=== PATIENT | female | born 1940 | race African-American/Black ===

== ENCOUNTER → 2016-06-29 | Outpatient (CLI) | payer MEDICARE ==
[~2016-06-29] MED LIST: ADAL30TA5 PO; ASPI1TAB69 PO; KETO2SHA TOPICAL; LISI20TA PO; METF500 PO; METF850T PO; Prenatal Vitamins PO; ZOCO40TA PO
[2016-06-29 08:01] LABS: ALKALINE PHOSPHATASE 106 U/L (45-117); ALT (GPT) 26 U/L (10-53); ANION GAP 9 MEQ/L (5-15); AST (GOT) 19 U/L (15-37); BICARBONATE 28.8 MEQ/L (21.0-32.0); BLOOD UREA NITROGEN 15 MG/DL (7-18); CHLORIDE 99 MEQ/L (98-107); GLOMERULAR FILTRATION RATE 67 ML/MIN (>89); GLUCOSE,FASTING 284 MG/DL (74-99); HDL CHOLESTEROL 68.9 MG/DL (40.0-60.0); LDL CHOLESTEROL 108 MG/DL (0-99); POTASSIUM 3.7 MEQ/L (3.5-5.1); SODIUM (NA) 137 MEQ/L (136-145); TOTAL BILIRUBIN ADULT 0.5 MG/DL (0.2-1.0)
[2016-06-29 11:28] LABS: HEMOGLOBIN A1a 1.2 %; HEMOGLOBIN A1b 2.8 %; HEMOGLOBIN Ao 77.6 %; HEMOGLOBIN LA1C 3.1 %; HEMOGLOBIN P3 5.2 %
== END ==
LOC: CLAB 06:39
PROVIDERS: ATTEND Family Medicine
DX: E11.9 Type 2 diabetes mellitus without complications (principal); E78.5 Hyperlipidemia, unspecified
CPT/HCPCS: 36415; 80053; 80061; 83036

== ENCOUNTER → 2017-01-31 | Outpatient (CLI) | payer MEDICARE ==
[~2017-01-31] MED LIST changes: -METF500 PO
[2017-01-31 13:35] LABS: HEMOGLOBIN A1a 1.2 %; HEMOGLOBIN A1b 2.2 %; HEMOGLOBIN Ao 81.7 %; HEMOGLOBIN LA1C 2.2 %
== END ==
LOC: CLAB 07:32
PROVIDERS: ATTEND Family Medicine
DX: E11.9 Type 2 diabetes mellitus without complications (principal)
CPT/HCPCS: 36415; 83036